=== PATIENT | female | born 1940 | race Caucasian/White ===

== ENCOUNTER 2019-02-28 11:17 | Emergency (ER) | payer OTHER, BC | END 2019-02-28 12:26 | disposition home or self-care (01) | LOC: FER 11:17 ==

== ENCOUNTER 2019-03-04 12:16 | Observation (INO) | payer OTHER, BC ==
[2019-03-04] MEDS ORDERED: SODIUM CHLORIDE 500 ML IV STA (12:52)
--- NOTE | 2019-03-04 12:56 | PDOC ---
History of Present Illness - General Chief Complaint: Chest Pain Stated Complaint: CHEST PAIN Time Seen by Provider: 03/04/19 12:19 History Source: Patient Exam Limitations: No Limitations - History of Present Illness Initial Comments: Pt is a 78 yo F, with PMH of IDDM (last A1C 9%), remote breast CA (lumpectomy and radiation in ), chronic arthritis (on lortab), who is presenting with complaints of mid-sternal and L-sided chest pain. Pt states the pain started this afternoon shortly before arrival, and started when she was relaxing watching TV. The pain was sharp, lasted for about 1 minute at a time, with the episode lasting 30 minutes. The pain resolved on its own and she did not take any medication for pain before arrival. The pain was not associated with diaphoresis, n/v, but she did feel the pulse in her wrist was "not regular". Pt had a recent fall to her left side (negative x-rays), but states this pain is different. Pt denies any fevers/chills, headache, vision changes, syncope, palpitations, SOB, nausea/vomiting, abdominal pain, urinary symptoms, diarrhea/ constipation, or leg swelling. Social: Pt smokes one and half packs per day, but denies any alcohol or drug use. Pt denies any recent travel or sick contacts. Surgical: appendectomy, cholecystectomy. Family: no relevant history. 03/04/19 18:30 Past History - Travel Traveled outside of the country in the last 30 days: No Close contact w/someone who was outside of country & ill: No - Past Medical History Allergies/Adverse Reactions: Allergies Allergy/AdvReac Type Severity Reaction Status Date / Time Penicillins Allergy Verified 02/28/19 11:25 Home Medications: Ambulatory Orders Hydrocodone/Acetaminophen [Hydrocodon-Acetaminophn 10-325] 1 each PO QID PRN 12/18 Insulin NPH Hum/Reg Insulin Hm [Humulin 70/30 Kwikpen] 22 unit SQ DAILY COPD: No - Suicide/Smoking/Psychosocial Hx Smoking History: Never smoked Number of Cigarettes Smoked Daily: 10 'Breaking Loose' booklet given: 02/28/19 Hx Alcohol Use: No Drug/Substance Use Hx: No Review of Systems - Review of Systems Able to Perform ROS?: Yes Is the patient limited Bengali proficient: No Constitutional: Yes: Weight Stable. No: Chills, Diaphoresis, Fever, Loss of Appetite, Malaise, Weakness HEENTM: No: Blurred Vision, Double Vision, Nose Congestion, Throat Pain, Throat Swelling, Difficulty Swallowing Respiratory: Yes: Cough, Productive cough (baseline, with minimal white sputum) . No: Orthopnea, Shortness of Breath, Wheezing, Hemoptysis Cardiac (ROS): Yes: Chest Pain, Irregular Heart Rate. No: Edema, Lightheadedness, Palpitations, Syncope, Chest Tightness ABD/GI: No: Blood Streaked Bowels, Constipated, Diarrhea, Nausea, Poor Appetite , Poor Fluid Intake, Rectal Bleeding, Vomiting, Tarry Stools : No: Burning, Dysuria, Pain, Urgency Musculoskeletal: No: Back Pain, Joint Pain Integumentary: No: Rash Neurological: No: Headache, Numbness, Weakness, Unsteady Gait, Dizziness Psychiatric: No: Sleep Pattern Change, Change in Appetite Endocrine: No: Increased Urine, Change in Weight Hematologic/Lymphatic: No: Anemia, Blood Clots, Easy Bleeding, Easy Bruising All Other Systems: Reviewed and Negative *Physical Exam - Physical Exam Comments: BP 148/56, HR in 80s, but irregular with PVCs on monitor, pt afebrile. Pt in NAD , normal body habitus, speaking in full sentences. Pt alert and oriented x3. 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 No midline spinal tenderness, step-offs, or crepitus. TTP over L ribs (recent fall to L side). No reproducible midsternal chest tenderness. Head normocephalic, atraumatic. Eyes PERRLA, EOMI. Oropharynx without erythema or exudates, no LAD b/l. No nasal congestion, hearing intact. Clear heart sounds, S1/S2, no JVD, b/l pedal edema, or heart murmur. Clear lung sounds, no respiratory distress, wheezes, crackles, or accessory muscle use. No abdominal or CVA tenderness to palpation, no rebound, no guarding. Abdomen soft, non-distended, and with normoactive bowel sounds. Skin without jaundice or rash. 03/04/19 12:53 03/04/19 14:58 Heart Score/ECG Review - History History: Slightly suspicious - Electrocardiogram EKG: Non specific repolarization disturbance - Age Age: >/= 65 - Risk Factors Risk Factors Heart Score: Yes Hx Diabetes, Yes Smoking History Based on the list above the patient has:: 1-2 risk factors - Troponin Troponin: </= normal limit - Score Heart Score - Total: 4 - ECG Intrepretation Rhythm: PVC(s) - [place]: Normal ED Treatment Course - LABORATORY CBC & Chemistry Diagram: 03/04/19 13:40 03/04/19 16:30 - RADIOLOGY Radiology Studies Ordered: Category Date Time Status CHEST PA & LAT [RAD] Stat Radiology 03/04/19 12:46 Ordered Medical Decision Making - Medical Decision Making Pt was seen at bedside, also will be seen by attending Dr. Rivera. Pt presenting with complaints of mid-sternal and L-sided chest pain. Pt states the pain started this afternoon shortly before arrival, and started when she was relaxing watching TV. The pain was sharp, lasted for about 1 minute at a time, with the episode lasting 30 minutes. The pain resolved on its own and she did not take any medication for pain before arrival. The pain was not associated with diaphoresis, n/v, but she did feel the pulse in her wrist was "not regular ". Pt had a recent fall to her left side (negative x-rays), but states this pain is different. Pt denies any fevers/chills, headache, vision changes, syncope, palpitations, SOB, nausea/vomiting, abdominal pain, urinary symptoms, diarrhea/constipation, or leg swelling. Considering new arrhythmia 2/2 infection, dehydration, thyroid, electrolyte imbalances vs ACS vs PE vs angina. Ordered work-up including CBC, CMP, cardiac profile, TSH, Mg, D-dimer, chest x- ray, UA, urine culture. Provided 500 mL IV NS for improvement of tachycardia and possible dehydration. Will continue to reassess pt and monitor for symptomatic improvement. ECG: Sinus tachycardia with premature supraventricular complexes (HR 106, WA 202 , QRS 80, QTc 454). No TWIs or significant ST segment changes. No significant changes from prior ECG. 03/04/19 17:23 Chest x-ray showed no acute changes. CBC WNL CMP generally WNL, glucose 267 Trop <.03 D-dimer 784 -- will proceed to CTA of chest Pending CTA. 03/04/19 17:30 Impression: No CT evidence of pulmonary embolism or other acute intrathoracic pathology. Centrilobular emphysema is seen which is probably moderate. Clinical/laboratory correlation is suggested. A moderate to marked T7 vertebral body compression fracture is noted which is probably chronic or subacute. Correlate clinically. 03/04/19 18:13 Paging hospitalist team for tele obs admission. Placed consult order for cardiology (Gr. Gitig). 03/04/19 18:23 Pt admitted to hospitalist (Dr. Machuca). 03/04/19 18:29 *DC/Admit/Observation/Transfer Diagnosis at time of Disposition: Chest pain Qualifiers: Chest pain type: unspecified Qualified Code(s): R07.9 - Chest pain, unspecified - Discharge Dispostion Condition at time of disposition: Stable Decision to Admit order: Yes - Referrals Referrals: Alek Hu MD [Primary Care Provider] - - Patient Instructions Printed Discharge Instructions: DI for Atypical Chest Pain - Post Discharge Activity
[2019-03-04 13:06] VITALS: BMI 22.6
[2019-03-04 14:08] LABS: INR 0.97 (0.82-1.09); PROTHROMBIN TIME (PATIENT) 10.9 SEC (10.2-13.0)
[2019-03-04 14:15] LABS: MAGNESIUM 1.8 mg/dL (1.8-2.4)
[2019-03-04 15:56] LABS: BASO % 1.3 % (0-2.0); EOS % 0.8 % (0-4.5); HEMOGLOBIN 14.2 GM/dL (10.7-15.3); LYMPH % 13.4 % (8-40); MCH 29.6 pg (25.7-33.7); MCHC 32.9 g/dl (32.0-36.0); MEAN PLT VOLUME 8.6 fl (7.5-11.1); NEUT % 78.5 % (42.8-82.8); PLATELET COUNT 248 K/MM3 (134-434); RBC 4.78 M/mm3 (3.60-5.2); RDW 13.9 % (11.6-15.6); WHITE BLOOD COUNT 9.1 K/mm3 (4.0-10.0)
--- NOTE | 2019-03-04 17:19 | PDOC ---
Attending Attestation - Resident Resident Name: Mary Anne Melgar - ED Attending Attestation I have performed the following: I have examined & evaluated the patient, The case was reviewed & discussed with the resident, I agree w/resident's findings & plan, Exceptions are as noted - HPI HPI: 03/04/19 18:11 Reviewed Residents HPI - Physicial Exam PE: 03/04/19 18:11 Reviewed Residents PE - Medical Decision Making 03/04/19 18:53 78 years old past medical history significant for insulin-dependent diabetes, remote breast cancer, arthritis, long-standing smoking history presents with mid and left-sided chest discomfort. Patient had mechanical fall several days ago x-rays demonstrated no acute fracture she states this pain is different from the pain from her fall. Noticed any regular pulse when she checks her pulse at home Here in the emergency department patient had a nonischemic EKG with occasional PVCs, troponin was negative and CTA negative for PE Case discussed with patient's primary care provider recommends observation with telemetry for cardiac rule out We'll observe on medicine service for further management. Heart Score/ECG Review - History History: Slightly suspicious - Electrocardiogram EKG: Non specific repolarization disturbance - Age Age: >/= 65 - Risk Factors Risk Factors Heart Score: Yes Hx Diabetes, Yes Smoking History Based on the list above the patient has:: 1-2 risk factors - Troponin Troponin: </= normal limit - Score Heart Score - Total: 4 - ECG Impressions Comment:: 03/04/19 18:54 EKG performed at 1225 demonstrates sinus tachycardia 103. Anterior infarct age indeterminate. Occasional PVCs. No ST elevations. No T-wave inversions. Normal axis. Interpreted by me.
[2019-03-04 17:23] LABS: CREATININE 0.6 mg/dl (0.55-1.3)
[2019-03-04 17:24] LABS: BILIRUBIN,TOTAL 0.7 mg/dl (0.2-1); CALCIUM 9.1 mg/dl (8.5-10); POTASSIUM 4.4 mmol/L (3.5-5.1); TOT PROT 7.2 g/dl (6.4-8.2)
[2019-03-04] MEDS ORDERED: ASPIRIN 81 MG CHEWABLE TABLETS PO ONE (19:52)
[2019-03-04 20:01] LABS: EPITHELIAL CELLS FEW /hpf
[2019-03-04] MEDS ORDERED: INSULIN (NOVOLOG MIX 70/30) 100 UNITS/ML MDV SQ SCH (22:00)
--- NOTE | 2019-03-04 22:01 | HP ---
CHIEF COMPLAINT:midsternal chest pain PCP:Dr. Hu HISTORY OF PRESENT ILLNESS: 78 year old female with past medical history significant for diabetes mellitus, right breast lumpectomy and long history of ongoing tobacco use who had a fall 3 days ago, reported no syncopy and she was seen in the ER and workup was negative for fractures. She reported midsternal chest pain which started at 10 am and lasted about 1 1/2 hour while she was resting. She reports she continues to have chest pain and more related to muskuloskeletal pain due to her fall and not similar to the pain she had earlier today. She denied radiation to her left arm, neck, jaw, nausea, vomiting, shortness of breath, diaphoresis or hemoptysis. ER course was notable for: (1)mild tachycardia, no hypoxemia, elevated D-Dimer -784, CTangiogram of chest negative for pulmonary embolism (2)normal troponin , EKG-sinus tachycardia 106bpm, PVC's, no evidence of acute ischemia Recent Travel: denies PAST MEDICAL HISTORY: as above PAST SURGICAL HISTORY: appendectomy tonsillectomy right breast cancer with lumpectomy gallbladder surgery Social History: Smoking:+tobacco use 1 1/2-2 ppd for >50years Alcohol:denies Drugs: denies Family History:denies heart disease in family Allergies Penicillins Allergy (Verified 02/28/19 11:25) HOME MEDICATIONS: Home Medications Medication Instructions Recorded Hydrocodone/Acetaminophen 1 each PO QID PRN 03/04/19 [Hydrocodon-Acetaminophn 10-325] Insulin NPH Hum/Reg Insulin Hm 22 unit SQ DAILY 03/04/19 [Humulin 70/30 Kwikpen] REVIEW OF SYSTEMS CONSTITUTIONAL: Absent: fever, chills, diaphoresis, generalized weakness, malaise, loss of appetite, weight change HEENT: Absent: rhinorrhea, nasal congestion, throat pain, throat swelling, difficulty swallowing, mouth swelling, ear pain, eye pain, visual changes CARDIOVASCULAR: Absent: chest pain, syncope, palpitations, irregular heart rate, lightheadedness , peripheral edema RESPIRATORY: Absent: cough, shortness of breath, dyspnea with exertion, orthopnea, wheezing, stridor, hemoptysis GASTROINTESTINAL: Absent: abdominal pain, abdominal distension, nausea, vomiting, diarrhea, constipation, melena, hematochezia GENITOURINARY: Absent: dysuria, frequency, urgency, hesitancy, hematuria, flank pain, genital pain MUSCULOSKELETAL: Absent: myalgia, arthralgia, joint swelling, back pain, neck pain, left sided chest pain SKIN: Absent: rash, itching, pallor HEMATOLOGIC/IMMUNOLOGIC: Absent: easy bleeding, easy bruising, lymphadenopathy, frequent infections ENDOCRINE: Absent: unexplained weight gain, unexplained weight loss, heat intolerance, cold intolerance NEUROLOGIC: Absent: headache, focal weakness or paresthesias, dizziness, unsteady gait, seizure, mental status changes, bladder or bowel incontinence PSYCHIATRIC: Absent: anxiety, depression, suicidal or homicidal ideation, hallucinations. PHYSICAL EXAMINATION Vital Signs - 24 hr 03/04/19 03/04/19 03/04/19 12:17 12:45 13:00 Temperature 98.3 F Pulse Rate 106 H Pulse Rate [ 104 H 112 H Apical] Respiratory 16 16 16 Rate Blood Pressure 148/56 L Blood Pressure 155/68 160/82 [Right Arm] O2 Sat by Pulse 96 96 97 Oximetry (%) 03/04/19 03/04/19 03/04/19 16:40 18:14 19:54 Temperature 98 F Pulse Rate 84 Pulse Rate [ 95 H Apical] Respiratory 17 18 18 Rate Blood Pressure 138/74 Blood Pressure 178/70 H [Right Arm] O2 Sat by Pulse 97 97 97 Oximetry (%) 03/04/19 21:10 Temperature 98 F Pulse Rate 84 Pulse Rate [ Apical] Respiratory 18 Rate Blood Pressure 138/74 Blood Pressure [Right Arm] O2 Sat by Pulse Oximetry (%) GENERAL: awake alert and fully oriented, no acute distress HEAD: normal EYES: pupils equal, round and reactive to light EARS, NOSE, THROAT: Ears normal, nares patent NECK: supple no JVD LUNGS: breath sounds clear to auscultation bilaterally no wheezing or crackles no accessory muscle use HEART: regular rate and rhythm, normal S1 and S2 no murmur ABDOMEN: soft nontender not distended normoactive bowel sounds MUSCULOSKELETAL: Normal range of motion at all joints. No bony deformities or tenderness. No CVA tenderness UPPER EXTREMITIES: 2+ pulses, warm, well-perfused no cyanosis no clubbing no peripheral edema LOWER EXTREMITIES: 2+ pulses, warm, well-perfused. No calf tenderness. No peripheral edema. NEUROLOGICAL: no neuro focal deficits PSYCHIATRIC: cooperative SKIN: warm, dry, normal turgor no rashes or lesions noted Laboratory Results - last 24 hr 03/04/19 03/04/19 03/04/19 13:40 13:40 13:40 WBC 9.1 RBC 4.78 Hgb 14.2 Hct 43.0 MCV 90.0 MCH 29.6 MCHC 32.9 RDW 13.9 Plt Count 248 MPV 8.6 D Absolute Neuts (auto) 7.2 Neutrophils % 78.5 D Lymphocytes % 13.4 D Monocytes % 6.0 Eosinophils % 0.8 Basophils % 1.3 Nucleated RBC % 0 PT with INR INR D-Dimer Sodium Cancelled Potassium Cancelled Chloride Cancelled Carbon Dioxide Cancelled Anion Gap Cancelled BUN Cancelled Creatinine Cancelled Est GFR (CKD-EPI)AfAm Cancelled Est GFR (CKD-EPI)NonAf Cancelled POC Glucometer Random Glucose Cancelled Calcium Cancelled Magnesium 1.8 Total Bilirubin Cancelled AST Cancelled ALT Cancelled Alkaline Phosphatase Cancelled Creatine Kinase 54 Troponin I < 0.03 Total Protein Cancelled Albumin Cancelled TSH 0.78 Free T4 Urine Color Urine Appearance Urine pH Urine Protein Urine Glucose (UA) Urine Ketones Urine Blood Urine Nitrite Urine Bilirubin Urine Urobilinogen Ur Leukocyte Esterase Urine RBC Urine WBC Ur Transition Epith Cell Urine Bacteria 03/04/19 03/04/19 03/04/19 13:40 13:40 13:40 WBC RBC Hgb Hct MCV MCH MCHC RDW Plt Count MPV Absolute Neuts (auto) Neutrophils % Lymphocytes % Monocytes % Eosinophils % Basophils % Nucleated RBC % PT with INR 10.9 INR 0.97 D-Dimer 784 H Sodium Potassium Chloride Carbon Dioxide Anion Gap BUN Creatinine Est GFR (CKD-EPI)AfAm Est GFR (CKD-EPI)NonAf POC Glucometer Random Glucose Calcium Magnesium Total Bilirubin AST ALT Alkaline Phosphatase Creatine Kinase Troponin I Total Protein Albumin TSH Free T4 1.19 Urine Color Urine Appearance Urine pH Urine Protein Urine Glucose (UA) Urine Ketones Urine Blood Urine Nitrite Urine Bilirubin Urine Urobilinogen Ur Leukocyte Esterase Urine RBC Urine WBC Ur Transition Epith Cell Urine Bacteria 03/04/19 03/04/19 03/04/19 13:50 16:30 18:41 WBC RBC Hgb Hct MCV MCH MCHC RDW Plt Count MPV Absolute Neuts (auto) Neutrophils % Lymphocytes % Monocytes % Eosinophils % Basophils % Nucleated RBC % PT with INR INR D-Dimer Sodium 134 L Potassium 4.4 Chloride 94 L Carbon Dioxide 27 Anion Gap 13 BUN 11 Creatinine 0.6 Est GFR (CKD-EPI)AfAm 101.18 Est GFR (CKD-EPI)NonAf 87.30 POC Glucometer 189 Random Glucose 267 H Calcium 9.1 Magnesium Total Bilirubin 0.7 AST 14 L ALT 7 L Alkaline Phosphatase 91 Creatine Kinase Troponin I Total Protein 7.2 Albumin 4.0 TSH Free T4 Urine Color Yellow Urine Appearance Clear Urine pH 5.0 Urine Protein 1+ H Urine Glucose (UA) 2+ H Urine Ketones Trace Urine Blood Negative Urine Nitrite Negative Urine Bilirubin Negative Urine Urobilinogen 0.2 Ur Leukocyte Esterase Negative Urine RBC 0-2 Urine WBC 2-5 Ur Transition Epith Cell Few Urine Bacteria Few 03/04/19 20:10 WBC RBC Hgb Hct MCV MCH MCHC RDW Plt Count MPV Absolute Neuts (auto) Neutrophils % Lymphocytes % Monocytes % Eosinophils % Basophils % Nucleated RBC % PT with INR INR D-Dimer Sodium Potassium Chloride Carbon Dioxide Anion Gap BUN Creatinine Est GFR (CKD-EPI)AfAm Est GFR (CKD-EPI)NonAf POC Glucometer Random Glucose Calcium Magnesium Total Bilirubin AST ALT Alkaline Phosphatase Creatine Kinase Troponin I < 0.03 Total Protein Albumin TSH Free T4 Urine Color Urine Appearance Urine pH Urine Protein Urine Glucose (UA) Urine Ketones Urine Blood Urine Nitrite Urine Bilirubin Urine Urobilinogen Ur Leukocyte Esterase Urine RBC Urine WBC Ur Transition Epith Cell Urine Bacteria ASSESSMENT/PLAN: This is a 78 year old female with past medical history significant for diabetes mellitus, right breast lumpectomy and long history of ongoing tobacco use who had a fall 3 days ago, reported no syncopy and she was seen in the ER and workup was negative for fractures. She reported midsternal chest pain which was different to her left sided chest pain she was having related to her fall. Atypical Chest Pain(S/P Fall) Workup- elevated D-Dimer -784, CTangiogram of chest negative for pulmonary embolism normal troponin , EKG-sinus tachycardia 106bpm, PVC's no evidence of acute ischemia, potassium and TSH normal -Continue to trend troponins,repeat EKG, BMP and check magnesium level in am -Cardiology consulted-Dr. De La Cruz -Echocardiogram ordered to evaluate LV function and exclude wall motion abnormalities -Will give one dosage of IV toradol 15 mg for muskuloskelteal pain (left sided chest pain) as not relieved with percocet Diabetes Mellitus Accucheks before meals and at bedtime, - Continue with NPH insulin FEN NPO in case stress test is recommended, monitor electrolytes DVT - lovenox 30mg once daily Visit type - Emergency Visit Emergency Visit: Yes ED Registration Date: 03/04/19 Care time: The patient presented to the Emergency Department on the above date and was hospitalized for further evaluation of their emergent condition. - New Patient This patient is new to me today: Yes Date on this admission: 03/04/19 - Critical Care Critical Care patient: No
[2019-03-04] MEDS ORDERED: KETOROLAC TROMETHAMINE 15 MG/ML VIAL IVPUSH ONE (22:04)
[2019-03-05 09:05] LABS: CALCIUM 8.7 mg/dl (8.5-10); CREATININE 0.6 mg/dl (0.55-1.3); MAGNESIUM 1.7 mg/dL (1.8-2.4); POTASSIUM 4.4 mmol/L (3.5-5.1)
[2019-03-05] MEDS ORDERED: ENOXAPARIN NA (PORCINE) 30 MG/0.3 ML DISP.SYRIN SQ SCH (10:00)
[2019-03-05 10:38] LABS: MEAN PLT VOLUME 8.4 fl (7.5-11.1)
[2019-03-05 10:41] LABS: HEMATOCRIT 39.1 % (32.4-45.2); HEMOGLOBIN 13.1 GM/dL (10.7-15.3); MCH 29.7 pg (25.7-33.7); MCHC 33.6 g/dl (32.0-36.0); MEAN CELL VOLUME 88.5 fl (80-96); PLATELET COUNT 245 K/MM3 (134-434); RBC 4.42 M/mm3 (3.60-5.2); RDW 14.1 % (11.6-15.6); WHITE BLOOD COUNT 6.8 K/mm3 (4.0-10.0)
--- NOTE | 2019-03-05 12:04 | EKG ---
Test Reason : Blood Pressure : / mmHG Vent. Rate : 106 BPM Atrial Rate : 106 BPM P-R Int : 202 ms QRS Dur : 080 ms QT Int : 342 ms P-R-T Axes : 077 050 091 degrees QTc Int : 454 ms POOR DATA QUALITY, INTERPRETATION MAY BE ADVERSELY AFFECTED SINUS TACHYCARDIA WITH PREMATURE SUPRAVENTRICULAR COMPLEXES POSSIBLE LEFT ATRIAL ENLARGEMENT ANTERIOR INFARCT , AGE UNDETERMINED ABNORMAL ECG Confirmed by Chito Kee MD ([id number]) on 03/05/2019 12:04:12 PM Referred By: Rohit ONEIL Confirmed By:Chito Kee MD
[2019-03-05] MEDS ORDERED: MAGNESIUM OXIDE 400 MG TABLET (FP) PO ONE (13:15)
--- NOTE | 2019-03-05 13:22 | PN ---
Physical Exam: SUBJECTIVE: Patient seen and examined OBJECTIVE: Vital Signs Period Temp Pulse Resp BP Sys/Glover Pulse Ox Last 24 Hr 98 F-98.7 F 76-112 16-18 134-178/69-87 96-100 GENERAL: The patient is awake, alert, and fully oriented, in no acute distress. HEAD: Normal with no signs of trauma. EYES: PERRL, extraocular movements intact, sclera anicteric, conjunctiva clear. No ptosis. ENT: Ears normal, nares patent, oropharynx clear without exudates, moist mucous membranes. NECK: Trachea midline, full range of motion, supple. LUNGS: Breath sounds equal, clear to auscultation bilaterally, no wheezes, no crackles, no accessory muscle use. HEART: Regular rate and rhythm, S1, S2 without murmur, rub or gallop. ABDOMEN: Soft, nontender, nondistended, normoactive bowel sounds, no guarding, no rebound, no hepatosplenomegaly, no masses. EXTREMITIES: 2+ pulses, warm, well-perfused, no edema. NEUROLOGICAL: Cranial nerves II through XII grossly intact. Normal speech, gait not observed. PSYCH: Normal mood, normal affect. SKIN: Warm, dry, normal turgor, no rashes or lesions noted Laboratory Results - last 24 hr 03/04/19 03/04/19 03/04/19 13:40 13:40 13:40 WBC 9.1 RBC 4.78 Hgb 14.2 Hct 43.0 MCV 90.0 MCH 29.6 MCHC 32.9 RDW 13.9 Plt Count 248 MPV 8.6 D Absolute Neuts (auto) 7.2 Neutrophils % 78.5 D Lymphocytes % 13.4 D Monocytes % 6.0 Eosinophils % 0.8 Basophils % 1.3 Nucleated RBC % 0 PT with INR INR D-Dimer Sodium Cancelled Potassium Cancelled Chloride Cancelled Carbon Dioxide Cancelled Anion Gap Cancelled BUN Cancelled Creatinine Cancelled Est GFR (CKD-EPI)AfAm Cancelled Est GFR (CKD-EPI)NonAf Cancelled POC Glucometer Random Glucose Cancelled Calcium Cancelled Magnesium 1.8 Total Bilirubin Cancelled AST Cancelled ALT Cancelled Alkaline Phosphatase Cancelled Creatine Kinase 54 Troponin I < 0.03 Total Protein Cancelled Albumin Cancelled TSH 0.78 Free T4 Urine Color Urine Appearance Urine pH Urine Protein Urine Glucose (UA) Urine Ketones Urine Blood Urine Nitrite Urine Bilirubin Urine Urobilinogen Ur Leukocyte Esterase Urine RBC Urine WBC Ur Transition Epith Cell Urine Bacteria 03/04/19 03/04/19 03/04/19 13:40 13:40 13:40 WBC RBC Hgb Hct MCV MCH MCHC RDW Plt Count MPV Absolute Neuts (auto) Neutrophils % Lymphocytes % Monocytes % Eosinophils % Basophils % Nucleated RBC % PT with INR 10.9 INR 0.97 D-Dimer 784 H Sodium Potassium Chloride Carbon Dioxide Anion Gap BUN Creatinine Est GFR (CKD-EPI)AfAm Est GFR (CKD-EPI)NonAf POC Glucometer Random Glucose Calcium Magnesium Total Bilirubin AST ALT Alkaline Phosphatase Creatine Kinase Troponin I Total Protein Albumin TSH Free T4 1.19 Urine Color Urine Appearance Urine pH Urine Protein Urine Glucose (UA) Urine Ketones Urine Blood Urine Nitrite Urine Bilirubin Urine Urobilinogen Ur Leukocyte Esterase Urine RBC Urine WBC Ur Transition Epith Cell Urine Bacteria 03/04/19 03/04/19 03/04/19 13:50 16:30 18:41 WBC RBC Hgb Hct MCV MCH MCHC RDW Plt Count MPV Absolute Neuts (auto) Neutrophils % Lymphocytes % Monocytes % Eosinophils % Basophils % Nucleated RBC % PT with INR INR D-Dimer Sodium 134 L Potassium 4.4 Chloride 94 L Carbon Dioxide 27 Anion Gap 13 BUN 11 Creatinine 0.6 Est GFR (CKD-EPI)AfAm 101.18 Est GFR (CKD-EPI)NonAf 87.30 POC Glucometer 189 Random Glucose 267 H Calcium 9.1 Magnesium Total Bilirubin 0.7 AST 14 L ALT 7 L Alkaline Phosphatase 91 Creatine Kinase Troponin I Total Protein 7.2 Albumin 4.0 TSH Free T4 Urine Color Yellow Urine Appearance Clear Urine pH 5.0 Urine Protein 1+ H Urine Glucose (UA) 2+ H Urine Ketones Trace Urine Blood Negative Urine Nitrite Negative Urine Bilirubin Negative Urine Urobilinogen 0.2 Ur Leukocyte Esterase Negative Urine RBC 0-2 Urine WBC 2-5 Ur Transition Epith Cell Few Urine Bacteria Few 03/04/19 03/04/19 03/05/19 20:10 22:59 06:16 WBC RBC Hgb Hct MCV MCH MCHC RDW Plt Count MPV Absolute Neuts (auto) Neutrophils % Lymphocytes % Monocytes % Eosinophils % Basophils % Nucleated RBC % PT with INR INR D-Dimer Sodium Potassium Chloride Carbon Dioxide Anion Gap BUN Creatinine Est GFR (CKD-EPI)AfAm Est GFR (CKD-EPI)NonAf POC Glucometer 168 123 Random Glucose Calcium Magnesium Total Bilirubin AST ALT Alkaline Phosphatase Creatine Kinase Troponin I < 0.03 Total Protein Albumin TSH Free T4 Urine Color Urine Appearance Urine pH Urine Protein Urine Glucose (UA) Urine Ketones Urine Blood Urine Nitrite Urine Bilirubin Urine Urobilinogen Ur Leukocyte Esterase Urine RBC Urine WBC Ur Transition Epith Cell Urine Bacteria 03/05/19 03/05/19 03/05/19 07:50 07:50 07:50 WBC 6.8 RBC 4.42 Hgb 13.1 Hct 39.1 MCV 88.5 MCH 29.7 MCHC 33.6 RDW 14.1 Plt Count 245 MPV 8.4 Absolute Neuts (auto) Neutrophils % Lymphocytes % Monocytes % Eosinophils % Basophils % Nucleated RBC % PT with INR INR D-Dimer Sodium 133 L Potassium 4.4 Chloride 95 L Carbon Dioxide 28 Anion Gap 10 BUN 9 Creatinine 0.6 Est GFR (CKD-EPI)AfAm 101.18 Est GFR (CKD-EPI)NonAf 87.30 POC Glucometer Random Glucose 117 H Calcium 8.7 Magnesium 1.7 L Total Bilirubin AST ALT Alkaline Phosphatase Creatine Kinase Troponin I < 0.03 Total Protein Albumin TSH Free T4 Urine Color Urine Appearance Urine pH Urine Protein Urine Glucose (UA) Urine Ketones Urine Blood Urine Nitrite Urine Bilirubin Urine Urobilinogen Ur Leukocyte Esterase Urine RBC Urine WBC Ur Transition Epith Cell Urine Bacteria Active Medications Generic Name Dose Route Start Last Admin Trade Name Freq PRN Reason Stop Dose Admin Enoxaparin Sodium 30 mg 03/05/19 10:00 03/05/19 09:19 Lovenox - SQ Not Given DAILY [facility] Insulin Aspart 22 units 03/04/19 22:00 03/05/19 08:10 Novolog Mix 70/30 Vial SQ Not Given HS [facility] ASSESSMENT/PLAN 78 year-old female with a PMH significant for Type II IDDM, remote breast cancer , and osteoarthritis. Placed on observation for chest pain. Chest pain --no further episodes of chest pain --troponins neg x 3 --ECG not suggestive of acute ischemic event --CXR unremarkable --CTA negative for PE; no acute process --Echo pending --telemetry monitoring --cardiology consult pending Type II IDDM --Novolog 70/30 qhs --Novolog sliding scale coverage Breast cancer --no issues Osteoarthritis --stable Hypomagnesemia --repleted Emphysema --CT shows moderate centriblobular emphysema --current every day smoker FEN Fluids: PO intake adequate Electrolytes: replete as indicated Nutrition: diabetic low sodium DVT prophylaxis: subq lovenox Dispo: continues to require observation. Full code.
--- NOTE | 2019-03-05 13:55 | ECHO ---
Name: JAEL CANO Exam:Adult Echocardiogram Study Date: 03/05/2019 12:39 PM Age: 78 yrs Reason For Study: Chest pain MMode/2D Measurements & Calculations IVSd: 0.78 cm Ao root diam: 2.8 cm LVIDd: 4.1 cm LA dimension: 3.0 cm LVIDs: 2.5 cm LVPWd: 0.85 cm EDV(Teich): 73.8 ml LVOT diam: 1.8 cm ESV(Teich): 21.9 ml Doppler Measurements & Calculations MV E max melissa: 70.2 cm/sec Ao V2 max: 147.0 cm/sec MV A max melissa: 132.0 cm/sec Ao max P.6 mmHg MV E/A: 0.53 Ao V2 mean: 109.4 cm/sec Ao mean P.1 mmHg Ao V2 VTI: 33.5 cm NI(I,D): 1.8 cm2 NI(V,D): 1.9 cm2 LV V1 max P.2 mmHg SV(LVOT): 61.0 ml LV V1 mean P.3 mmHg LV V1 max: 114.0 cm/sec LV V1 mean: 86.1 cm/sec LV V1 VTI: 24.8 cm Procedure A two-dimensional transthoracic echocardiogram with color flow and Doppler was performed. The study w as technically difficult with many images being suboptimal in quality. The patient was in normal sinus r hythm during the exam. Left Ventricle The left ventricle is normal in size. The left ventricle is hyperdynamic. Ejection Fraction = 70%. Gr nena I diastolic dysfunction, (abnormal relaxation pattern). Right Ventricle The right ventricle is normal in size and function. Atria Normal left and right atrial size and function. Mitral Valve The mitral valve is grossly normal. There is trace mitral regurgitation. Tricuspid Valve The tricuspid valve is not well visualized, but is grossly normal. There is trace tricuspid regurgita tion. There was insufficient TR detected to calculate RV systolic pressure. Aortic Valve There is moderate aortic sclerosis.;. No hemodynamically significant valvular aortic stenosis. Trace aortic regurgitation. Pulmonic Valve The pulmonic valve is not well visualized. Great Vessels The aortic root is normal size. Pericardium/Pleura There is no pericardial effusion. Interpretation Summary The study was technically difficult with many images being suboptimal in quality. The left ventricle is hyperdynamic. The right ventricle is normal in size and function. Normal left and right atrial size and function. There is trace mitral regurgitation. No hemodynamically significant valvular aortic stenosis. There is moderate aortic sclerosis.; There is no pericardial effusion. There was insufficient TR detected to calculate RV systolic pressure. MD Pro Gupta 03/05/2019 01:55 PM
[2019-03-05] MEDS ORDERED: INSULIN (NOVOLOG) ASPART 100 UNITS/ML 10ML VIAL SQ SCH (16:30)
--- NOTE | 2019-03-05 16:52 | CON.CARD ---
Cardiology Consult (text) - Consultation Consultation Note: cc: cp hpi: 78 f hx dm, smoking, here with cp. Few days ago had mechanical fall at home and landed on left arm/chest area. No loc, sob, pnd, orthopnea, le edema. Came to ER and evaluated and sent home. Then yesterday noticed pain in left chest and central chest so came back to ER. No other cardiac sxs. Pain is achey and worse with movement or palpation. She thinks it is from fall. After getting pain meds last night her cp is better and she is asking to go home now. No hx hrt dz. pmh: per hpi psh: lumpectomy social: +tob fam: no premature cad, scd ros: per hpi; all others normal meds: Ambulatory Orders Hydrocodone/Acetaminophen [Hydrocodon-Acetaminophn 10-325] 1 each PO QID PRN 12/18 Insulin NPH Hum/Reg Insulin Hm [Humulin 70/30 Kwikpen] 22 unit SQ DAILY pe: Vital Signs Period Temp Pulse Resp BP Sys/Glover Pulse Ox Last 24 Hr 98 F-99.1 F 76-100 16-18 134-152/69-87 96-100 nad no jvd rrr s1s2 no mrg cta bl nl eff aao3 no le e/c/c abd nt nd pos bs no jaundice diaphoresis no carotid bruits, pos dp pt +chest wall tenderness Laboratory Last Values WBC 6.8 K/mm3 (4.0-10.0) 03/05/19 07:50 RBC 4.42 M/mm3 (3.60-5.2) 03/05/19 07:50 Hgb 13.1 GM/dL (10.7-15.3) 03/05/19 07:50 Hct 39.1 % (32.4-45.2) 03/05/19 07:50 MCV 88.5 fl (80-96) 03/05/19 07:50 MCH 29.7 pg (25.7-33.7) 03/05/19 07:50 MCHC 33.6 g/dl (32.0-36.0) 03/05/19 07:50 RDW 14.1 % (11.6-15.6) 03/05/19 07:50 Plt Count 245 K/MM3 (134-434) 03/05/19 07:50 MPV 8.4 fl (7.5-11.1) 03/05/19 07:50 Absolute Neuts (auto) 7.2 K/mm3 (1.5-8.0) 03/04/19 13:40 Neutrophils % 78.5 % (42.8-82.8) D 03/04/19 13:40 Lymphocytes % 13.4 % (8-40) D 03/04/19 13:40 Monocytes % 6.0 % (3.8-10.2) 03/04/19 13:40 Eosinophils % 0.8 % (0-4.5) 03/04/19 13:40 Basophils % 1.3 % (0-2.0) 03/04/19 13:40 Nucleated RBC % 0 % (0-0) 03/04/19 13:40 PT with INR 10.9 SEC (10.2-13.0) 03/04/19 13:40 INR 0.97 (0.82-1.09) 03/04/19 13:40 D-Dimer 784 ng/ml (0-500) H 03/04/19 13:40 Sodium 133 mmol/L (136-145) L 03/05/19 07:50 Potassium 4.4 mmol/L (3.5-5.1) 03/05/19 07:50 Chloride 95 mmol/L (98-107) L 03/05/19 07:50 Carbon Dioxide 28 mmol/L (21-32) 03/05/19 07:50 Anion Gap 10 MMOL/L (8-16) 03/05/19 07:50 BUN 9 mg/dl (7-18) 03/05/19 07:50 Creatinine 0.6 mg/dl (0.55-1.3) 03/05/19 07:50 Est GFR (CKD-EPI)AfAm 101.18 03/05/19 07:50 Est GFR (CKD-EPI)NonAf 87.30 03/05/19 07:50 POC Glucometer 123 UNITS (80-120) 03/05/19 06:16 Random Glucose 117 mg/dl (74-106) H 03/05/19 07:50 Calcium 8.7 mg/dl (8.5-10) 03/05/19 07:50 Magnesium 1.7 mg/dL (1.8-2.4) L 03/05/19 07:50 Total Bilirubin 0.7 mg/dl (0.2-1) 03/04/19 16:30 AST 14 U/L (15-37) L 03/04/19 16:30 ALT 7 U/L (13-61) L 03/04/19 16:30 Alkaline Phosphatase 91 U/L (45-117) 03/04/19 16:30 Creatine Kinase 54 U/L (26-192) 03/04/19 13:40 Troponin I < 0.03 ng/ml (0.00-0.05) 03/05/19 07:50 Total Protein 7.2 g/dl (6.4-8.2) 03/04/19 16:30 Albumin 4.0 g/dl (3.4-5.0) 03/04/19 16:30 TSH 0.78 uIU/ml (0.358-3.74) 03/04/19 13:40 Free T4 1.19 ng/dl (0.76-1.46) 03/04/19 13:40 Urine Color Yellow 03/04/19 13:50 Urine Appearance Clear 03/04/19 13:50 Urine pH 5.0 (4.5-8) 03/04/19 13:50 Urine Protein 1+ (NEGATIVE) H 03/04/19 13:50 Urine Glucose (UA) 2+ (NEGATIVE) H 03/04/19 13:50 Urine Ketones Trace (NEGATIVE) 03/04/19 13:50 Urine Blood Negative (NEGATIVE) 03/04/19 13:50 Urine Nitrite Negative (NEGATIVE) 03/04/19 13:50 Urine Bilirubin Negative (NEGATIVE) 03/04/19 13:50 Urine Urobilinogen 0.2 (0.2-1.0) 03/04/19 13:50 Ur Leukocyte Esterase Negative (NEGATIVE) 03/04/19 13:50 Urine RBC 0-2 /hpf (0-4) 03/04/19 13:50 Urine WBC 2-5 (NEGATIVE) 03/04/19 13:50 Ur Transition Epith Cell Few /hpf 03/04/19 13:50 Urine Bacteria Few /hpf (NEGATIVE) 03/04/19 13:50 echo 03/2019: tds; nl lv/rv, no sig valve path tele: sr, occ isolated pvcs ecg: sr 106, nl intervals, pvcs, no ischemic changes cta chest: no pe, no TAA/diss, no chf a/p: 78 f hx dm, smoking, here with cp. cp: -atypical cp, seems MSK from recent fall -no signs acs. ce's, ecg, echo all unremarkable. -monitor for now with pain control, if persists pt will call office abnl ecg: -occasional isolated pvcs on tele and ecg. TSH wnl. Echo shows nl lvef and pt has no symptoms from pvcs so no further treatment needed at this time for benign pvcs. tob use: -smoking cessation cardiac lenz stable for dc
--- NOTE | 2019-03-05 17:49 | DS ---
Physical Exam: SUBJECTIVE: Patient seen and examined OBJECTIVE: Vital Signs Period Temp Pulse Resp BP Sys/Glover Pulse Ox Last 24 Hr 98 F-99.1 F 76-100 16-18 134-152/69-87 96-100 PHYSICAL EXAM GENERAL: The patient is awake, alert, and fully oriented, in no acute distress. HEAD: Normal with no signs of trauma. EYES: PERRL, extraocular movements intact, sclera anicteric, conjunctiva clear. ENT: Ears normal, nares patent, oropharynx clear without exudates, moist mucous membranes. NECK: Trachea midline, full range of motion, supple. LUNGS: Breath sounds equal, clear to auscultation bilaterally, no wheezes, no crackles, no accessory muscle use. HEART: Regular rate and rhythm, S1, S2 without murmur, rub or gallop. ABDOMEN: Soft, nontender, nondistended, normoactive bowel sounds, no guarding, no rebound, no hepatosplenomegaly, no masses. EXTREMITIES: 2+ pulses, warm, well-perfused, no edema. NEUROLOGICAL: Cranial nerves II through XII grossly intact. Normal speech, gait not observed. PSYCH: Normal mood, normal affect. SKIN: Warm, dry, normal turgor, no rashes or lesions noted. LABS Laboratory Results - last 24 hr 03/04/19 03/04/19 03/04/19 13:40 13:50 18:41 WBC RBC Hgb Hct MCV MCH MCHC RDW Plt Count MPV Sodium Cancelled Potassium Cancelled Chloride Cancelled Carbon Dioxide Cancelled Anion Gap Cancelled BUN Cancelled Creatinine Cancelled Est GFR (CKD-EPI)AfAm Cancelled Est GFR (CKD-EPI)NonAf Cancelled POC Glucometer 189 Random Glucose Cancelled Calcium Cancelled Magnesium Total Bilirubin Cancelled AST Cancelled ALT Cancelled Alkaline Phosphatase Cancelled Troponin I Total Protein Cancelled Albumin Cancelled TSH 0.78 Urine RBC 0-2 Urine WBC 2-5 Ur Transition Epith Cell Few Urine Bacteria Few 03/04/19 03/04/19 03/05/19 20:10 22:59 06:16 WBC RBC Hgb Hct MCV MCH MCHC RDW Plt Count MPV Sodium Potassium Chloride Carbon Dioxide Anion Gap BUN Creatinine Est GFR (CKD-EPI)AfAm Est GFR (CKD-EPI)NonAf POC Glucometer 168 123 Random Glucose Calcium Magnesium Total Bilirubin AST ALT Alkaline Phosphatase Troponin I < 0.03 Total Protein Albumin TSH Urine RBC Urine WBC Ur Transition Epith Cell Urine Bacteria 03/05/19 03/05/19 03/05/19 07:50 07:50 07:50 WBC 6.8 RBC 4.42 Hgb 13.1 Hct 39.1 MCV 88.5 MCH 29.7 MCHC 33.6 RDW 14.1 Plt Count 245 MPV 8.4 Sodium 133 L Potassium 4.4 Chloride 95 L Carbon Dioxide 28 Anion Gap 10 BUN 9 Creatinine 0.6 Est GFR (CKD-EPI)AfAm 101.18 Est GFR (CKD-EPI)NonAf 87.30 POC Glucometer Random Glucose 117 H Calcium 8.7 Magnesium 1.7 L Total Bilirubin AST ALT Alkaline Phosphatase Troponin I < 0.03 Total Protein Albumin TSH Urine RBC Urine WBC Ur Transition Epith Cell Urine Bacteria 03/05/19 16:52 WBC RBC Hgb Hct MCV MCH MCHC RDW Plt Count MPV Sodium Potassium Chloride Carbon Dioxide Anion Gap BUN Creatinine Est GFR (CKD-EPI)AfAm Est GFR (CKD-EPI)NonAf POC Glucometer 160 Random Glucose Calcium Magnesium Total Bilirubin AST ALT Alkaline Phosphatase Troponin I Total Protein Albumin TSH Urine RBC Urine WBC Ur Transition Epith Cell Urine Bacteria HOSPITAL COURSE: Date of Admission:03/04/19 Date of Discharge: 03/05/19 Minutes to complete discharge: 35 Discharge Summary Reason For Visit: SUPRAVENTRICULAR PREMATURE BEATS Current Active Problems Chest pain (Acute) Condition: Improved - Instructions Diet, Activity, Other Instructions: It is recommended you follow up with your primary care provider, Dr. Hu , within 1-2 weeks of your discharge. Return to the emergency department for any new or worsening symptoms. Referrals: Alek Hu MD [Primary Care Provider] - Disposition: HOME - Home Medications Comprehensive Discharge Medication List: Ambulatory Orders Hydrocodone/Acetaminophen [Hydrocodone-Acetamin 10-325 mg] 1 each PO QID PRN 12/18 Insulin NPH Hum/Reg Insulin Hm [Humulin 70/30 Kwikpen] 22 unit SQ DAILY This patient is new to me today: Yes Date on this admission: 03/05/19 Emergency Visit: Yes ED Registration Date: 03/04/19 Care time: The patient presented to the Emergency Department on the above date and was hospitalized for further evaluation of their emergent condition. Critical Care patient: No - Discharge Referral Referred to [facility] No
[2019-03-05 18:55] VITALS: BP 140/75; PULSE 80; TEMP 98.9
== END 2019-03-05 18:21 | disposition home or self-care (01) ==
LOC: FER 12:16 → FM/S 18:14
PROVIDERS: ADMIT Internal Medicine; ATTEND Nurse Practitioner Acute Care
PROC: 3E0333Z Introduction of Anti-inflammatory into Peripheral Vein, Percutaneous Approach (ICD-10-PCS; principal; 2019-03-04)
PROC: 3E0337Z Introduction of Electrolytic and Water Balance Substance into Peripheral Vein, Percutaneous Approach (ICD-10-PCS; 2019-03-04)
DX: R07.89 Other chest pain (principal); Z91.81 History of falling; E11.9 Type 2 diabetes mellitus without complications; E83.42 Hypomagnesemia; R94.31 Abnormal electrocardiogram [ECG] [EKG]; M19.90 Unspecified osteoarthritis, unspecified site; F17.210 Nicotine dependence, cigarettes, uncomplicated; I49.3 Ventricular premature depolarization; R00.0 Tachycardia, unspecified; Z79.4 Long term (current) use of insulin; Z88.0 Allergy status to penicillin; Z85.3 Personal history of malignant neoplasm of breast; Z92.3 Personal history of irradiation; J43.9 Emphysema, unspecified
CPT/HCPCS: 36415; 71046-TC-FY; 71275-TC; 80048; 80053; 81003; 81015; 82550; 82962; 83735; 84439; 84443; 84484; 85025; 85027; 85379; 85610; 93005; 93306-TC; 96361; 96374; 99285-25; G0378; J7030

== ENCOUNTER 2020-08-17 19:47 | Inpatient (IN) | payer OTHER, BC ==
[2020-08-17 21:21] LABS: EOS % 0.8 % (0-4.5); HEMATOCRIT 41.5 % (32.4-45.2); HEMOGLOBIN 13.9 GM/dL (10.7-15.3); LYMPH % 16.8 % (8-40); MCH 29.8 pg (25.7-33.7); MCHC 33.4 g/dl (32.0-36.0); MEAN PLT VOLUME 8.1 fl (7.5-11.1); MONO % 6.2 % (3.8-10.2); NEUT % 75.2 % (42.8-82.8); PLATELET COUNT 335 K/MM3 (134-434); RBC 4.66 M/mm3 (3.60-5.2); RDW 14.6 % (11.6-15.6); WHITE BLOOD COUNT 8.2 K/mm3 (4.0-10.0)
[2020-08-17 21:35] LABS: INR 0.86 (0.83-1.09); PROTHROMBIN TIME (PATIENT) 10.5 SEC (9.7-13.0)
[2020-08-17 21:38] LABS: ACTIVATED PTT 32.9 SECONDS (25.2-36.5)
[2020-08-17 21:41] LABS: POTASSIUM 4.6 mmol/L (3.5-5.1)
[2020-08-17 21:44] LABS: ALBUMIN 3.8 g/dl (3.4-5.0)
[2020-08-17] MEDS ORDERED: DEXTROSE 5%-0.45% SALINE 1,000 ML IV SCH (21:45)
[2020-08-17 21:48] LABS: CREATININE 0.6 mg/dL (0.55-1.3)
[2020-08-17 21:49] LABS: BILIRUBIN,TOTAL 0.3 mg/dL (0.2-1)
[2020-08-17 21:57] LABS: EPI CELLS 15 /uL (0-25.1); HYALINE CASTS 1 /uL (0-3.1); URINE APPEARANCE CLEAR; URINE BACTERIA 196 /uL (0-1359); URINE BILIRUBIN NEGATIVE (NEGATIVE); URINE COLOR YELLOW; URINE GLUCOSE (UA) NEGATIVE (NEGATIVE); URINE KETONE NEGATIVE (NEGATIVE); URINE LEUK ESTERASE 1+ (NEGATIVE); URINE NITRITE NEGATIVE (NEGATIVE); URINE PROTEIN NEGATIVE (NEGATIVE); URINE RBC 6 /uL (0-23.9); URINE WBC 19 /uL (0-25.8)
[2020-08-18] MEDS ORDERED: oxyCODONE HCL 5 MG TABLET ONE (02:02)
[2020-08-18] MEDS: oxyCODONE HCL 5 MG TABLET PO PRN ×4 (02:05→21:50)
[2020-08-18 07:53] LABS: HEMATOCRIT 37.7 % (32.4-45.2); HEMOGLOBIN 12.4 GM/dL (10.7-15.3); MCH 29.2 pg (25.7-33.7); MEAN CELL VOLUME 88.6 fl (80-96); MEAN PLT VOLUME 7.9 fl (7.5-11.1); PLATELET COUNT 299 K/MM3 (134-434); RBC 4.25 M/mm3 (3.60-5.2); RDW 14.4 % (11.6-15.6); WHITE BLOOD COUNT 7.6 K/mm3 (4.0-10.0)
[2020-08-18 08:03] LABS: POTASSIUM 4.5 mmol/L (3.5-5.1)
[2020-08-18 08:04] LABS: CALCIUM 8.5 mg/dL (8.5-10.1)
[2020-08-18 08:05] LABS: BLOOD UREA NITROGEN 8.2 mg/dL (7-18)
[2020-08-18 08:08] LABS: CREATININE 0.5 mg/dL (0.55-1.3)
[2020-08-18] MEDS: DOCUSATE SODIUM 100 MG CAPSULE (FP) PO SCH (09:49)
[2020-08-18] MEDS: ENOXAPARIN NA (PORCINE) 40 MG/0.4 ML DISP.SYRIN SQ SCH (09:50)
[2020-08-19] MEDS: oxyCODONE HCL 5 MG TABLET PO PRN ×3 (06:50→21:20)
[2020-08-19 07:28] LABS: HEMATOCRIT 42.3 % (32.4-45.2); HEMOGLOBIN 13.8 GM/dL (10.7-15.3); MCH 28.8 pg (25.7-33.7); MCHC 32.6 g/dl (32.0-36.0); MEAN CELL VOLUME 88.5 fl (80-96); MEAN PLT VOLUME 7.6 fl (7.5-11.1); PLATELET COUNT 311 K/MM3 (134-434); RBC 4.78 M/mm3 (3.60-5.2); RDW 14.6 % (11.6-15.6); WHITE BLOOD COUNT 6.6 K/mm3 (4.0-10.0)
[2020-08-19 07:47] LABS: POTASSIUM 4.9 mmol/L (3.5-5.1)
[2020-08-19 08:11] LABS: ALBUMIN 3.6 g/dl (3.4-5.0)
[2020-08-19 08:12] LABS: BLOOD UREA NITROGEN 7.3 mg/dL (7-18); MAGNESIUM 1.8 mg/dL (1.8-2.4)
[2020-08-19 08:15] LABS: BILIRUBIN,TOTAL 1.3 mg/dL (0.2-1); CREATININE 0.6 mg/dL (0.55-1.3); TOT PROT 7.2 g/dl (6.4-8.2)
[2020-08-19] MEDS: ENOXAPARIN NA (PORCINE) 40 MG/0.4 ML DISP.SYRIN SQ SCH (09:56)
[2020-08-19] MEDS: DOCUSATE SODIUM 100 MG CAPSULE (FP) PO SCH (13:11)
[2020-08-19 16:04] VITALS: BMI 19.1
[2020-08-20] MEDS: oxyCODONE HCL 5 MG TABLET PO PRN ×2 (05:05→11:30)
[2020-08-20 06:34] LABS: HEMATOCRIT 38.6 % (32.4-45.2); HEMOGLOBIN 12.9 GM/dL (10.7-15.3); MCH 29.3 pg (25.7-33.7); MCHC 33.4 g/dl (32.0-36.0); MEAN CELL VOLUME 87.9 fl (80-96); MEAN PLT VOLUME 7.6 fl (7.5-11.1); PLATELET COUNT 279 K/MM3 (134-434); RBC 4.39 M/mm3 (3.60-5.2); RDW 14.3 % (11.6-15.6); WHITE BLOOD COUNT 5.1 K/mm3 (4.0-10.0)
[2020-08-20 06:42] LABS: POTASSIUM 4.4 mmol/L (3.5-5.1)
[2020-08-20 06:50] LABS: BLOOD UREA NITROGEN 8.3 mg/dL (7-18); CALCIUM 8.5 mg/dL (8.5-10.1); MAGNESIUM 1.7 mg/dL (1.8-2.4)
[2020-08-20 06:53] LABS: CREATININE 0.6 mg/dL (0.55-1.3); PHOSPHOROUS 3.6 mg/dL (2.5-4.9)
[2020-08-20] MEDS ORDERED: MAGNESIUM 2GM/50ML STERILE WATER IVPB IVPB ONE (07:45)
[2020-08-20] MEDS: ENOXAPARIN NA (PORCINE) 40 MG/0.4 ML DISP.SYRIN SQ SCH (09:49)
[2020-08-20] MEDS: DOCUSATE SODIUM 100 MG CAPSULE (FP) PO SCH (09:50)
[2020-08-20 15:03] VITALS: BP 87/58; PULSE 92; TEMP 98.2
== END 2020-08-20 18:39 | disposition home or self-care (01) | DRG 638 ==
LOC: JER 19:47 → JERBED 23:25 → J7W 08-18 03:19
PROVIDERS: ADMIT Hospitalist
DX: E11.649 Type 2 diabetes mellitus with hypoglycemia without coma (principal); E87.1 Hypo-osmolality and hyponatremia; R64 Cachexia; Z68.1 Body mass index [BMI] 19.9 or less, adult; Z85.3 Personal history of malignant neoplasm of breast
CPT/HCPCS: 36415; 71045-TC-FY; 76705-TC; 80048; 80053; 81003; 82962; 83036; 83525; 83527; 83735; 84100; 84443; 84681; 85025; 85027; 85610; 85730; 87086; 93005; 93010; 97116-GP; 97161-GP; 99285-25; C9803; U0003

== ENCOUNTER 2020-11-23 03:11 | Inpatient (IN) | payer OTHER, BC ==
[2020-11-23] MEDS ORDERED: morphine CARPU-JECT 4 MG/1 ML DISP.SYRIN IVPUSH ONE ×2 (03:24→04:33)
[2020-11-23] MEDS ORDERED: morphine SULFATE 4 MG/ML VIAL ONE ×2 (03:30→04:34)
[2020-11-23] MEDS ORDERED: MIDAZOLAM HCL 2 MG/2 ML SINGLE DOSE VIAL IVPUSH ONE (03:49)
[2020-11-23] MEDS ORDERED: MIDAZOLAM HCL 2 MG/2 ML SINGLE DOSE VIAL ONE (03:52)
[2020-11-23 03:56] LABS: BASO % 1.4 % (0-2.0); EOS % 2.7 % (0-4.5); HEMATOCRIT 37.7 % (32.4-45.2); HEMOGLOBIN 12.7 GM/dL (10.7-15.3); LYMPH % 19.7 % (8-40); MCHC 33.6 g/dl (32.0-36.0); MEAN CELL VOLUME 89.1 fl (80-96); MEAN PLT VOLUME 8.1 fl (7.5-11.1); MONO % 5.4 % (3.8-10.2); NEUT % 70.8 % (42.8-82.8); PLATELET COUNT 267 K/MM3 (134-434); RBC 4.23 M/mm3 (3.60-5.2); RDW 14.5 % (11.6-15.6); WHITE BLOOD COUNT 10.7 K/mm3 (4.0-10.0)
[2020-11-23 04:11] LABS: INR 0.86 (0.83-1.09); PROTHROMBIN TIME (PATIENT) 10.5 SEC (9.7-13.0)
[2020-11-23 04:13] LABS: ACTIVATED PTT 33.6 SECONDS (25.2-36.5)
[2020-11-23 04:20] LABS: POTASSIUM 4.6 mmol/L (3.5-5.1)
[2020-11-23 04:21] LABS: CALCIUM 9.1 mg/dL (8.5-10.1)
[2020-11-23 04:23] LABS: ALBUMIN 3.6 g/dl (3.4-5.0); BLOOD UREA NITROGEN 11.9 mg/dL (7-18)
[2020-11-23 04:25] LABS: CREATININE 0.7 mg/dL (0.55-1.3)
[2020-11-23 04:27] LABS: BILIRUBIN,TOTAL 0.3 mg/dL (0.2-1); TOT PROT 6.9 g/dl (6.4-8.2)
[2020-11-23] MEDS ORDERED: ACETAMINOPHEN 1000 MG/100 ML VIAL (NON FORMULARY) IVPB ONE ×2 (04:33→09:00)
[2020-11-23] MEDS ORDERED: ACETAMINOPHEN INJECTION 100 ML IVPB ONE ×2 (05:27→09:17)
[2020-11-23] MEDS ORDERED: SODIUM CHLORIDE 1,000 ML IV SCH ×2 (08:30→17:57)
[2020-11-23] MEDS ORDERED: oxyCODONE HCL 5 MG TABLET PO PRN (08:31)
[2020-11-23] MEDS ORDERED: MORPHINE SULFATE 2 MG/ML VIAL IVPUSH PRN (08:31)
[2020-11-23] MEDS ORDERED: MORPHINE SULFATE 2 MG/ML VIAL ONE (09:28)
[2020-11-23 10:28] LABS: URINE APPEARANCE CLOUDY; URINE BILIRUBIN NEGATIVE (NEGATIVE); URINE COLOR YELLOW; URINE GLUCOSE (UA) NEGATIVE (NEGATIVE); URINE KETONE TRACE (NEGATIVE)
[2020-11-23 10:29] LABS: PH,URINE 5.5 (5.0-8.0); URINE LEUK ESTERASE 3+ (NEGATIVE); URINE NITRITE POSITIVE (NEGATIVE); URINE PROTEIN NEGATIVE (NEGATIVE); URINE RBC 36.6 /uL (0-23.9); URINE UROBILINOGEN 0.2 mg/dL (0.2-1.0)
[2020-11-23 10:30] LABS: EPI CELLS 11.3 /uL (0-25.1); HYALINE CASTS 4.75 /uL (0-3.1); URINE BACTERIA 9790.1 /uL (0-1359); URINE WBC 465.9 /uL (0-25.8)
[2020-11-23] MEDS ORDERED: CEFTRIAXONE 1 GM/50 ML BAG ONE (10:57)
[2020-11-23] MEDS: INSULIN SLIDING SCALE (NOVOLOG) 1 VIAL SQ SCH ×3 (11:14→23:12)
[2020-11-23] MEDS ORDERED: CEFTRIAXONE 1 GM in DEXTROSE 5%-WATER - 50 ML IVPB SCH (11:15)
[2020-11-23] MEDS ORDERED: hydrALAZINE HCL 20 MG/ML VIAL IVPUSH ONE (11:59)
[2020-11-23] MEDS ORDERED: hydrALAZINE HCL 20 MG/ML VIAL ONE (12:15)
[2020-11-23 13:37] VITALS: BMI 19.4
[2020-11-23] MEDS ORDERED: PROPOFOL 20 ML ONE (15:06)
[2020-11-23] MEDS ORDERED: ceFAZolin SODIUM 1 GM VIAL IVPB ONE (15:20)
[2020-11-23] MEDS ORDERED: ceFAZolin SODIUM 1 GM VIAL ONE (15:23)
[2020-11-23] MEDS ORDERED: MAG HYDROX/AL HYDROX/SIMETH 30 ML UNIT-DOSE CUP PO PRN (17:46)
[2020-11-23] MEDS ORDERED: MAGNESIUM HYDROX 2400MG/30ML ORAL SUSPENSION 30 ML CUP PO PRN (17:46)
[2020-11-23] MEDS ORDERED: PHENYLEPHRINE NS PREMIX 50,000 MCG/500 ML BAG IVPB SCH ×2 (19:00)
[2020-11-23] MEDS: ASCORBIC ACID 500 MG TABLET (FP) PO SCH (23:10)
[2020-11-23] MEDS: MORPHINE SULFATE 2 MG/ML VIAL IVPUSH PRN (23:11)
[2020-11-23] MEDS: DOCUSATE SODIUM 100 MG CAPSULE (FP) PO SCH (23:11)
[2020-11-24] MEDS: oxyCODONE HCL 5 MG TABLET PO PRN ×3 (03:19→21:29)
[2020-11-24] MEDS: INSULIN SLIDING SCALE (NOVOLOG) 1 VIAL SQ SCH ×4 (06:45→21:31)
[2020-11-24] MEDS: FERROUS SO4 325 MG TABLET (FP) PO SCH ×3 (07:59→17:41)
[2020-11-24] MEDS: ACETAMINOPHEN 325 MG TABLET (FP) PO PRN (08:00)
[2020-11-24 08:57] LABS: BASO % 0.5 % (0-2.0); EOS % 0.1 % (0-4.5); HEMATOCRIT 25.4 % (32.4-45.2); HEMOGLOBIN 8.7 GM/dL (10.7-15.3); LYMPH % 12.6 % (8-40); MCH 30.2 pg (25.7-33.7); MCHC 34.2 g/dl (32.0-36.0); MEAN CELL VOLUME 88.4 fl (80-96); MEAN PLT VOLUME 8.3 fl (7.5-11.1); MONO % 6.4 % (3.8-10.2); NEUT % 80.4 % (42.8-82.8); PLATELET COUNT 176 K/MM3 (134-434); RBC 2.87 M/mm3 (3.60-5.2); WHITE BLOOD COUNT 6.5 K/mm3 (4.0-10.0)
[2020-11-24 09:21] LABS: POTASSIUM 4.4 mmol/L (3.5-5.1)
[2020-11-24 09:25] LABS: ALBUMIN 2.9 g/dl (3.4-5.0); BLOOD UREA NITROGEN 15.2 mg/dL (7-18); MAGNESIUM 1.6 mg/dL (1.8-2.4)
[2020-11-24 09:28] LABS: CREATININE 0.6 mg/dL (0.55-1.3); PHOSPHOROUS 3.3 mg/dL (2.5-4.9)
[2020-11-24 09:30] LABS: TOT PROT 5.5 g/dl (6.4-8.2)
[2020-11-24 09:32] LABS: BILIRUBIN,TOTAL 0.6 mg/dL (0.2-1)
[2020-11-24] MEDS ORDERED: cefTRIAXone SODIUM 1 GM VIAL ONE (10:19)
[2020-11-24] MEDS ORDERED: DEXTROSE 5%-WATER - 50 ML IVPB ONE (10:19)
[2020-11-24] MEDS: DOCUSATE SODIUM 100 MG CAPSULE (FP) PO SCH ×2 (10:40→21:29)
[2020-11-24] MEDS: CEFTRIAXONE 1 GM in DEXTROSE 5%-WATER - 50 ML IVPB SCH (10:40)
[2020-11-24] MEDS: ASCORBIC ACID 500 MG TABLET (FP) PO SCH ×2 (10:40→21:29)
[2020-11-24] MEDS ORDERED: INSULIN (NOVOLOG) ASPART 100 UNITS/ML 10ML VIAL ONE ×2 (10:53→21:24)
[2020-11-24] MEDS ORDERED: MAGNESIUM SULF 50% (8.12 MEQ/2 ML-1 GM VIAL) IVPB ONE (13:45)
[2020-11-24] MEDS: ENOXAPARIN NA (PORCINE) 40 MG/0.4 ML DISP.SYRIN SQ SCH (17:41)
[2020-11-24 19:58] LABS: BASO % 0.7 % (0-2.0); EOS % 0.2 % (0-4.5); HEMATOCRIT 23.8 % (32.4-45.2); HEMOGLOBIN 8.3 GM/dL (10.7-15.3); LYMPH % 12.1 % (8-40); MCH 30.5 pg (25.7-33.7); MCHC 34.7 g/dl (32.0-36.0); MEAN CELL VOLUME 87.8 fl (80-96); MEAN PLT VOLUME 9.1 fl (7.5-11.1); MONO % 7.4 % (3.8-10.2); NEUT % 79.6 % (42.8-82.8); PLATELET COUNT 209 K/MM3 (134-434); RBC 2.71 M/mm3 (3.60-5.2); RDW 14.6 % (11.6-15.6); WHITE BLOOD COUNT 7.9 K/mm3 (4.0-10.0)
[2020-11-25] MEDS: INSULIN SLIDING SCALE (NOVOLOG) 1 VIAL SQ SCH ×4 (06:33→22:11)
[2020-11-25] MEDS: FERROUS SO4 325 MG TABLET (FP) PO SCH ×3 (08:34→17:19)
[2020-11-25] MEDS ORDERED: DEXTROSE 5%-WATER - 50 ML IVPB ONE (09:13)
[2020-11-25] MEDS ORDERED: cefTRIAXone SODIUM 1 GM VIAL ONE (09:13)
[2020-11-25 09:24] LABS: BASO % 0.8 % (0-2.0); EOS % 0.1 % (0-4.5); HEMATOCRIT 24.4 % (32.4-45.2); HEMOGLOBIN 8.5 GM/dL (10.7-15.3); LYMPH % 9.7 % (8-40); MCH 30.3 pg (25.7-33.7); MCHC 34.6 g/dl (32.0-36.0); MEAN CELL VOLUME 87.5 fl (80-96); MEAN PLT VOLUME 8.1 fl (7.5-11.1); MONO % 5.9 % (3.8-10.2); NEUT % 83.5 % (42.8-82.8); PLATELET COUNT 195 K/MM3 (134-434); RBC 2.79 M/mm3 (3.60-5.2); WHITE BLOOD COUNT 9.1 K/mm3 (4.0-10.0)
[2020-11-25] MEDS: DOCUSATE SODIUM 100 MG CAPSULE (FP) PO SCH ×2 (09:31→21:24)
[2020-11-25] MEDS: ASCORBIC ACID 500 MG TABLET (FP) PO SCH ×2 (09:31→21:24)
[2020-11-25] MEDS: ENOXAPARIN NA (PORCINE) 40 MG/0.4 ML DISP.SYRIN SQ SCH (09:31)
[2020-11-25] MEDS: CEFTRIAXONE 1 GM in DEXTROSE 5%-WATER - 50 ML IVPB SCH (09:31)
[2020-11-25] MEDS: MORPHINE SULFATE 2 MG/ML VIAL IVPUSH PRN (09:39)
[2020-11-25 09:46] LABS: POTASSIUM 3.8 mmol/L (3.5-5.1)
[2020-11-25] MEDS ORDERED: BENZOCAINE/MENTH/CETYLPYRD CL 1 EACH LOZENGE MM PRN (10:16)
[2020-11-25 10:23] LABS: CALCIUM 8.2 mg/dL (8.5-10.1)
[2020-11-25 10:24] LABS: BLOOD UREA NITROGEN 15.4 mg/dL (7-18)
[2020-11-25 10:28] LABS: CREATININE 0.5 mg/dL (0.55-1.3); PHOSPHOROUS 2.4 mg/dL (2.5-4.9)
[2020-11-25] MEDS: guaiFENesin 200 MG/10 ML 10 ML UNIT-DOSE CUPS PO SCH ×4 (10:46→21:27)
[2020-11-25] MEDS: NAPH,MB-DB/K PH,MBDB POWDER PACKET PO SCH ×2 (12:26→21:24)
[2020-11-26] MEDS: oxyCODONE HCL 5 MG TABLET PO PRN ×2 (01:15→09:55)
[2020-11-26] MEDS: guaiFENesin 200 MG/10 ML 10 ML UNIT-DOSE CUPS PO SCH ×4 (04:15→21:41)
[2020-11-26] MEDS: INSULIN SLIDING SCALE (NOVOLOG) 1 VIAL SQ SCH ×4 (06:46→23:00)
[2020-11-26 08:40] LABS: EOS % 0.7 % (0-4.5); HEMATOCRIT 23.8 % (32.4-45.2); HEMOGLOBIN 8.3 GM/dL (10.7-15.3); LYMPH % 19.4 % (8-40); MCH 30.5 pg (25.7-33.7); MCHC 34.7 g/dl (32.0-36.0); MEAN CELL VOLUME 87.8 fl (80-96); MEAN PLT VOLUME 8.3 fl (7.5-11.1); MONO % 6.4 % (3.8-10.2); NEUT % 72.5 % (42.8-82.8); PLATELET COUNT 235 K/MM3 (134-434); RBC 2.71 M/mm3 (3.60-5.2); RDW 14.4 % (11.6-15.6); WHITE BLOOD COUNT 8.1 K/mm3 (4.0-10.0)
[2020-11-26] MEDS: FERROUS SO4 325 MG TABLET (FP) PO SCH ×3 (08:42→17:48)
[2020-11-26 08:57] LABS: POTASSIUM 3.8 mmol/L (3.5-5.1)
[2020-11-26 08:58] LABS: BLOOD UREA NITROGEN 10.9 mg/dL (7-18)
[2020-11-26 08:59] LABS: MAGNESIUM 1.9 mg/dL (1.8-2.4)
[2020-11-26 09:05] LABS: CREATININE 0.4 mg/dL (0.55-1.3); PHOSPHOROUS 2.9 mg/dL (2.5-4.9)
[2020-11-26] MEDS ORDERED: DEXTROSE 5%-WATER - 50 ML IVPB ONE (09:30)
[2020-11-26] MEDS ORDERED: cefTRIAXone SODIUM 1 GM VIAL ONE (09:30)
[2020-11-26] MEDS: CEFTRIAXONE 1 GM in DEXTROSE 5%-WATER - 50 ML IVPB SCH (09:40)
[2020-11-26] MEDS: ENOXAPARIN NA (PORCINE) 40 MG/0.4 ML DISP.SYRIN SQ SCH (09:41)
[2020-11-26] MEDS: ASCORBIC ACID 500 MG TABLET (FP) PO SCH ×2 (09:42→21:41)
[2020-11-26] MEDS: ASPIRIN COATED 81 MG TABLET.EC PO SCH (09:42)
[2020-11-26] MEDS: DOCUSATE SODIUM 100 MG CAPSULE (FP) PO SCH ×2 (09:42→21:41)
[2020-11-26] MEDS: ATORVASTATIN CA 10 MG TABLET (FP) PO SCH (21:41)
[2020-11-27] MEDS: oxyCODONE HCL 5 MG TABLET PO PRN ×3 (00:33→12:28)
[2020-11-27] MEDS: guaiFENesin 200 MG/10 ML 10 ML UNIT-DOSE CUPS PO SCH ×4 (06:16→22:40)
[2020-11-27] MEDS: INSULIN SLIDING SCALE (NOVOLOG) 1 VIAL SQ SCH ×4 (06:17→22:37)
[2020-11-27] MEDS: FERROUS SO4 325 MG TABLET (FP) PO SCH ×3 (08:04→18:44)
[2020-11-27 08:27] LABS: EOS % 1.1 % (0-4.5); HEMATOCRIT 22.5 % (32.4-45.2); HEMOGLOBIN 7.6 GM/dL (10.7-15.3); LYMPH % 15.1 % (8-40); MCH 30.2 pg (25.7-33.7); MEAN CELL VOLUME 88.7 fl (80-96); MONO % 8.2 % (3.8-10.2); NEUT % 74.6 % (42.8-82.8); PLATELET COUNT 281 K/MM3 (134-434); RBC 2.53 M/mm3 (3.60-5.2); WHITE BLOOD COUNT 7.5 K/mm3 (4.0-10.0)
[2020-11-27 08:55] LABS: POTASSIUM 3.9 mmol/L (3.5-5.1)
[2020-11-27 08:56] LABS: CALCIUM 7.8 mg/dL (8.5-10.1)
[2020-11-27 08:57] LABS: BLOOD UREA NITROGEN 8.1 mg/dL (7-18); MAGNESIUM 1.8 mg/dL (1.8-2.4)
[2020-11-27 09:01] LABS: CREATININE 0.4 mg/dL (0.55-1.3); PHOSPHOROUS 2.9 mg/dL (2.5-4.9)
[2020-11-27] MEDS ORDERED: cefTRIAXone SODIUM 1 GM VIAL ONE (09:17)
[2020-11-27] MEDS ORDERED: DEXTROSE 5%-WATER - 50 ML IVPB ONE (09:18)
[2020-11-27] MEDS: ENOXAPARIN NA (PORCINE) 40 MG/0.4 ML DISP.SYRIN SQ SCH (09:40)
[2020-11-27] MEDS: ASCORBIC ACID 500 MG TABLET (FP) PO SCH ×2 (09:40→22:39)
[2020-11-27] MEDS: ASPIRIN COATED 81 MG TABLET.EC PO SCH (09:40)
[2020-11-27] MEDS: DOCUSATE SODIUM 100 MG CAPSULE (FP) PO SCH ×2 (09:41→22:40)
[2020-11-27] MEDS: CEFTRIAXONE 1 GM in DEXTROSE 5%-WATER - 50 ML IVPB SCH (09:55)
[2020-11-27] MEDS: ACETAMINOPHEN 325 MG TABLET (FP) PO PRN (12:22)
[2020-11-27 22:03] LABS: EOS % 2.1 % (0-4.5); HEMATOCRIT 26.4 % (32.4-45.2); HEMOGLOBIN 9.2 GM/dL (10.7-15.3); LYMPH % 19.4 % (8-40); MCH 30.8 pg (25.7-33.7); MEAN PLT VOLUME 7.5 fl (7.5-11.1); MONO % 8.2 % (3.8-10.2); NEUT % 69.3 % (42.8-82.8); PLATELET COUNT 293 K/MM3 (134-434); RDW 13.9 % (11.6-15.6); WHITE BLOOD COUNT 7.7 K/mm3 (4.0-10.0)
[2020-11-27] MEDS: ATORVASTATIN CA 10 MG TABLET (FP) PO SCH (22:39)
[2020-11-28] MEDS: oxyCODONE HCL 5 MG TABLET PO PRN ×3 (02:33→21:12)
[2020-11-28] MEDS: guaiFENesin 200 MG/10 ML 10 ML UNIT-DOSE CUPS PO SCH ×4 (05:11→22:00)
[2020-11-28] MEDS: INSULIN SLIDING SCALE (NOVOLOG) 1 VIAL SQ SCH ×4 (07:24→21:21)
[2020-11-28 09:49] LABS: BASO % 1.3 % (0-2.0); EOS % 1.5 % (0-4.5); HEMATOCRIT 28.4 % (32.4-45.2); HEMOGLOBIN 9.8 GM/dL (10.7-15.3); LYMPH % 19.9 % (8-40); MCH 30.7 pg (25.7-33.7); MCHC 34.5 g/dl (32.0-36.0); MEAN CELL VOLUME 88.8 fl (80-96); MEAN PLT VOLUME 7.8 fl (7.5-11.1); MONO % 9.7 % (3.8-10.2); NEUT % 67.6 % (42.8-82.8); PLATELET COUNT 345 K/MM3 (134-434); RDW 13.8 % (11.6-15.6); WHITE BLOOD COUNT 8.1 K/mm3 (4.0-10.0)
[2020-11-28] MEDS: FERROUS SO4 325 MG TABLET (FP) PO SCH ×3 (10:08→16:53)
[2020-11-28] MEDS: DOCUSATE SODIUM 100 MG CAPSULE (FP) PO SCH ×3 (10:08→21:15)
[2020-11-28] MEDS: ASCORBIC ACID 500 MG TABLET (FP) PO SCH ×2 (10:08→21:12)
[2020-11-28 10:09] LABS: POTASSIUM 4.4 mmol/L (3.5-5.1)
[2020-11-28] MEDS: ASPIRIN COATED 81 MG TABLET.EC PO SCH (10:09)
[2020-11-28 10:13] LABS: BLOOD UREA NITROGEN 7.3 mg/dL (7-18)
[2020-11-28 10:14] LABS: CALCIUM 8.1 mg/dL (8.5-10.1); MAGNESIUM 1.8 mg/dL (1.8-2.4)
[2020-11-28 10:17] LABS: CREATININE 0.4 mg/dL (0.55-1.3); PHOSPHOROUS 3.3 mg/dL (2.5-4.9)
[2020-11-28] MEDS ORDERED: cefTRIAXone SODIUM 1 GM VIAL ONE (10:36)
[2020-11-28] MEDS ORDERED: DEXTROSE 5%-WATER - 50 ML IVPB ONE (10:36)
[2020-11-28] MEDS: ENOXAPARIN NA (PORCINE) 40 MG/0.4 ML DISP.SYRIN SQ SCH (10:43)
[2020-11-28] MEDS: CEFTRIAXONE 1 GM in DEXTROSE 5%-WATER - 50 ML IVPB SCH (10:43)
[2020-11-28] MEDS: ATORVASTATIN CA 10 MG TABLET (FP) PO SCH (21:12)
[2020-11-29] MEDS: guaiFENesin 200 MG/10 ML 10 ML UNIT-DOSE CUPS PO SCH ×2 (05:15→10:28)
[2020-11-29] MEDS: INSULIN SLIDING SCALE (NOVOLOG) 1 VIAL SQ SCH ×2 (06:00→11:31)
[2020-11-29] MEDS: oxyCODONE HCL 5 MG TABLET PO PRN ×2 (06:18→12:33)
[2020-11-29] MEDS: FERROUS SO4 325 MG TABLET (FP) PO SCH ×2 (08:10→12:33)
[2020-11-29 09:05] LABS: BASO % 0.9 % (0-2.0); EOS % 1.7 % (0-4.5); HEMATOCRIT 27.9 % (32.4-45.2); HEMOGLOBIN 9.7 GM/dL (10.7-15.3); LYMPH % 15.9 % (8-40); MCH 31.2 pg (25.7-33.7); MCHC 34.7 g/dl (32.0-36.0); MEAN CELL VOLUME 89.8 fl (80-96); MEAN PLT VOLUME 7.5 fl (7.5-11.1); MONO % 8.3 % (3.8-10.2); NEUT % 73.2 % (42.8-82.8); PLATELET COUNT 382 K/MM3 (134-434); RBC 3.11 M/mm3 (3.60-5.2); WHITE BLOOD COUNT 7.8 K/mm3 (4.0-10.0)
[2020-11-29 09:22] LABS: POTASSIUM 4.5 mmol/L (3.5-5.1)
[2020-11-29 09:32] LABS: CALCIUM 8.4 mg/dL (8.5-10.1)
[2020-11-29 09:33] LABS: MAGNESIUM 1.9 mg/dL (1.8-2.4)
[2020-11-29 09:34] LABS: ALBUMIN 2.6 g/dl (3.4-5.0); BLOOD UREA NITROGEN 7.6 mg/dL (7-18)
[2020-11-29 09:37] LABS: CREATININE 0.4 mg/dL (0.55-1.3); PHOSPHOROUS 3.5 mg/dL (2.5-4.9)
[2020-11-29 09:40] LABS: BILIRUBIN,TOTAL 0.8 mg/dL (0.2-1); TOT PROT 5.4 g/dl (6.4-8.2)
[2020-11-29] MEDS ORDERED: DEXTROSE 5%-WATER - 50 ML IVPB ONE (10:17)
[2020-11-29] MEDS ORDERED: cefTRIAXone SODIUM 1 GM VIAL ONE (10:17)
[2020-11-29] MEDS ORDERED: PT OWN MED DRAWER 7, Y5N ONE (10:18)
[2020-11-29] MEDS: CEFTRIAXONE 1 GM in DEXTROSE 5%-WATER - 50 ML IVPB SCH (10:24)
[2020-11-29] MEDS: ENOXAPARIN NA (PORCINE) 40 MG/0.4 ML DISP.SYRIN SQ SCH (10:24)
[2020-11-29] MEDS: DOCUSATE SODIUM 100 MG CAPSULE (FP) PO SCH (10:27)
[2020-11-29] MEDS: ASPIRIN COATED 81 MG TABLET.EC PO SCH (10:27)
[2020-11-29] MEDS: ASCORBIC ACID 500 MG TABLET (FP) PO SCH (10:28)
[2020-11-29] MEDS ORDERED: metoPROLOL SUCCINATE 25 MG TAB.SR.24H (FP) PO SCH (12:15)
[2020-11-29 13:32] VITALS: BP 145/67; PULSE 91; TEMP 98.4
== END 2020-11-29 16:07 | DRG 481 ==
LOC: JER 03:11 → JERBED 05:50 → J6S 13:10
PROVIDERS: ADMIT Internal Medicine; ATTEND Internal Medicine
PROC: 0QH706Z Insertion of Intramedullary Internal Fixation Device into Left Upper Femur, Open Approach (ICD-10-PCS; principal; 2020-11-23 15:00)
PROC: 30233N1 Transfusion of Nonautologous Red Blood Cells into Peripheral Vein, Percutaneous Approach (ICD-10-PCS; 2020-11-27)
DX: S72.22XA Displaced subtrochanteric fracture of left femur, initial encounter for closed fracture (principal); N39.0 Urinary tract infection, site not specified; E87.1 Hypo-osmolality and hyponatremia; D62 Acute posthemorrhagic anemia; E11.51 Type 2 diabetes mellitus with diabetic peripheral angiopathy without gangrene; I44.0 Atrioventricular block, first degree; I16.0 Hypertensive urgency; W01.190A Fall on same level from slipping, tripping and stumbling with subsequent striking against furniture, initial encounter; Y93.89 Activity, other specified; Y92.098 Other place in other non-institutional residence as the place of occurrence of the external cause; Y99.8 Other external cause status; I25.10 Atherosclerotic heart disease of native coronary artery without angina pectoris; E83.42 Hypomagnesemia; Z79.84 Long term (current) use of oral hypoglycemic drugs; I70.202 Unspecified atherosclerosis of native arteries of extremities, left leg; B96.20 Unspecified Escherichia coli [E. coli] as the cause of diseases classified elsewhere; R05 Cough
CPT/HCPCS: 36415; 36430; 71045-TC-FY; 72191-TC; 73523-TC-FY; 73706-TC-RT; 76000-TC-FY; 80048; 80053; 80061; 81003; 82962; 83721; 83735; 84100; 84484; 85025; 85610; 85730; 86850; 86900; 86901; 86922; 87086; 87186; 93005; 93010; 94010; 94760; 97116-GP; 97162-GP; 99285-25; C9803; J0131; P9058; U0003

== ENCOUNTER 2021-01-05 21:02 | Emergency (ER) | payer OTHER, BC ==
[2021-01-05 21:29] VITALS: TEMP 98; BMI 19.7
[2021-01-06] MEDS ORDERED: oxyCODONE HCL 5 MG TABLET PO ONE (01:25)
[2021-01-06] MEDS ORDERED: oxyCODONE HCL 5 MG TABLET ONE (04:04)
[2021-01-06 04:14] VITALS: BP 162/76; PULSE 68
== END 2021-01-06 04:21 ==
LOC: JER 21:02
DX: S62.91XA Unspecified fracture of right hand, initial encounter for closed fracture (principal)
CPT/HCPCS: 73030-TC-RT-FY; 73070-TC-RT-FY; 73090-TC-RT-FY; 73110-TC-RT-FY; 73130-TC-RT-FY; 99285-25